=== PATIENT | male | born 1960 | race Two or more races ===

== ENCOUNTER → 2023-04-14 | Emergency (ER) | payer OTHER ==
[~2023-04-14] VITALS: Ht 152.4 cm; Wt 70.3 kg
[~2023-04-14] MED LIST: TAMS0.4C PO; TOPROL XL100 M1 PO; ZESTRIL30 MG PO
[2023-04-14 14:03] LABS: HEMATOCRIT 45.5 % (39.0-48.0); MEAN CELL VOLUME 90.7 fL (80.0-100.00); MEAN CORPUSCULAR HEMOGLOBIN 29.9 pg (27.00-32.0); PH,URINE 5.5 (5.0-8.0); PLATELET COUNT 239 K/uL (150-450); RED BLOOD COUNT 5.01 M/uL (4.00-6.00); RED CELL DISTRIBUTION WIDTH 15.4 % (11.5-14.5); URINE APPEARANCE Clear; URINE BILIRRUBIN Negative (NEGATIVE); URINE BLOOD NHT; URINE COLOR Yellow; URINE GLUCOSE Negative (NEGATIVE); URINE LEUKOCYTE Negative; URINE NITRATE Negative; URINE UROBILINOGEN 0.2 E.U./dl
[2023-04-14 14:07] LABS: URINE BACTERIA 59.2 uL (0.0-1933); URINE RBC 18.5 uL (0.0-20.8); URINE WBC 9.4 uL (0.0-23.2)
[2023-04-14 14:21] LABS: URINE PROTEIN 100 (NEGATIVE)
[2023-04-14 14:29] LABS: CALCIUM 8.6 mg/dL (8.5-10.1); CREATININE SERUM 0.62 mg/dL (0.70-1.30); GFR 130.6; POTASSIUM 4.45 mEq/L (3.5-5.1)
== END | disposition home or self-care (01) ==
LOC: ER 11:42
PROVIDERS: General Practice
DX: R33.9 Retention of urine, unspecified (principal)

== ENCOUNTER 2023-04-17 15:19 | Emergency (ER) | payer OTHER ==
[~2023-04-17] VITALS: Ht 167.6 cm; Wt 77.1 kg
== END 2023-04-17 18:35 | disposition home or self-care (01) ==
LOC: ER 15:20
DX: T83.021A Displacement of indwelling urethral catheter, initial encounter (principal); Y92.89 Other specified places as the place of occurrence of the external cause; L40.9 Psoriasis, unspecified; F17.200 Nicotine dependence, unspecified, uncomplicated; I10 Essential (primary) hypertension; N40.0 Benign prostatic hyperplasia without lower urinary tract symptoms